=== PATIENT | male | born 2000 | race Hispanic/Latino ===

== ENCOUNTER 2020-06-09 10:55 | Outpatient (RCR) | payer OTHER | END 2020-06-15 | LOC: PT 10:55 | PROVIDERS: ATTEND Specialist | DX: M17.12 Unilateral primary osteoarthritis, left knee (principal) ==

== ENCOUNTER 2020-07-13 13:00 | Outpatient (RCR) | payer OTHER | END 2020-07-15 | LOC: PT 13:00 | PROVIDERS: ATTEND Specialist | DX: M17.12 Unilateral primary osteoarthritis, left knee (principal); M62.81 Muscle weakness (generalized) | CPT/HCPCS: 97139 ==